=== PATIENT | female | born 1950 | race Caucasian/White ===

== ENCOUNTER 2018-11-23 17:15 | Inpatient (IN) | payer MEDICARE ==
[~2018-11-23] VITALS: Ht 162.6 cm; Wt 50.8 kg
[2018-11-23] MEDS ORDERED: ESCI10TA PO (17:38)
[2018-11-23] MEDS ORDERED: HYDR-4384 PO (17:38)
[2018-11-23] MEDS ORDERED: TRAZ-213 PO (17:38)
[2018-11-23] MEDS ORDERED: PARO12.521 PO (17:38)
[2018-11-23] MEDS ORDERED: LORA0.5T PO (17:38)
[2018-11-23] MEDS ORDERED: ACETAMINOPHEN 325 MG TABLET PO PRN (19:00)
[2018-11-23] MEDS ORDERED: MAG HYDROX/AL HYDROX/SIMETH 30 ML UDC PO PRN (19:00)
[2018-11-23] MEDS ORDERED: TEMAZEPAM 7.5 MG CAPSULE PO PRN (19:00)
[2018-11-23] MEDS ORDERED: MAGNESIUM HYDROXIDE 30 ML UDC PO PRN (19:00)
[2018-11-23 20:00] VITALS: BP 126/76
[2018-11-23] MEDS: clonazePAM 0.5 MG TABLET PO PRN (21:12)
[2018-11-24 07:03] LABS: BASOPHILS % (AUTO) 0.4 % (0.0-2.0); HEMATOCRIT 42 % (33-45); HEMOGLOBIN 14.4 g/dL (11.5-14.8); LYMPHOCYTES # (AUTO) 1.7 /CMM (0.8-4.8); LYMPHOCYTES % (AUTO) 21.6 % (20.0-44.0); MEAN CORPUSCULAR HGB CONC 35 g/dl (31.0-36.0); MEAN CORPUSCULAR VOLUME 97 fL (82-100); MONOCYTES # (AUTO) 0.4 /CMM (0.1-1.30); MONOCYTES % (AUTO) 5.6 % (2.0-12.0); NEUTROPHILS # (AUTO) 5.5 /CMM (1.8-8.9); NEUTROPHILS % (AUTO) 71.4 % (43.0-81.0); PLATELET COUNT (AUTO) 306 /CMM (150-450); WHITE BLOOD COUNT (AUTO) 7.8 K/uL (4.3-11.0)
[2018-11-24 07:06] LABS: ALBUMIN 3.7 g/dL (3.4-5.0); BILIRUBIN,TOTAL 0.6 mg/dL (0.2-1.0); CALCIUM, SERUM 9.4 mg/dL (8.5-10.1); CREATININE 0.8 mg/dL (0.6-1.3); POTASSIUM 4.4 mmol/L (3.5-5.1); TOTAL PROTEIN, SERUM 6.9 g/dL (6.4-8.2)
[2018-11-24 07:09] LABS: CHOLESTEROL 226 mg/dL (<200); HDL CHOLESTEROL 83 mg/dL (40-60); LDL 121 mg/dL (0-99); TRIGLYCERIDES 82 mg/dL (30-150)
[2018-11-24 08:00] VITALS: BP 102/82
[2018-11-24] MEDS: clonazePAM 0.5 MG TABLET PO PRN ×2 (10:57→17:15)
[2018-11-24] MEDS ORDERED: TRAZODONE 50 MG TABLET PO PRN (15:00)
[2018-11-24] MEDS ORDERED: TEMAZEPAM 7.5 MG CAPSULE PO PRN (15:30)
[2018-11-24 16:00] VITALS: BP 136/70
[2018-11-24] MEDS: ESCITALOPRAM OXALATE (10 MG) 10 MG TABLET PO SCH (17:15)
[2018-11-24 19:50] VITALS: BP 122/76
[2018-11-24] MEDS: TRAZODONE 50 MG TABLET PO PRN (21:21)
[2018-11-25] MEDS: clonazePAM 0.5 MG TABLET PO PRN ×2 (00:26→09:09)
[2018-11-25 09:00] VITALS: BP 133/60
[2018-11-25] MEDS: ESCITALOPRAM OXALATE (10 MG) 10 MG TABLET PO SCH (09:09)
[2018-11-25 16:00] VITALS: BP 92/64
[2018-11-25 20:32] VITALS: BP 104/69
[2018-11-25] MEDS: TRAZODONE 50 MG TABLET PO PRN (21:14)
[2018-11-25] MEDS: ATORVASTATIN 10 MG TABLET PO SCH (21:52)
[2018-11-25] MEDS: TEMAZEPAM 7.5 MG CAPSULE PO PRN (21:52)
[2018-11-26] MEDS: clonazePAM 0.5 MG TABLET PO PRN ×4 (05:38→20:06)
[2018-11-26 08:00] VITALS: BP 101/72
[2018-11-26 08:19] LABS: APPEARANCE,URINE CLOUDY (CLEAR); BILIRUBIN,URINE NEGATIVE (NEGATIVE); BLOOD, URINE 1+ Ery/uL (NEGATIVE); COLOR,URINE YELLOW (YELLOW); KETONES,URINE NEGATIVE (NEGATIVE); LEUKOCYTE ESTERASE ,URINE 3+ (NEGATIVE); NITRITE, URINE POSITIVE (NEGATIVE); PROTEIN,URINE NEGATIVE (NEGATIVE); UGLUCOSE NEGATIVE (NEGATIVE); UROBILINOGEN,URINE 0.2 EU/dL (0.2)
[2018-11-26 08:28] LABS: BACTERIA,URINE Moderate /HPF (None Seen); SQUAMOUS EPITHELIAL CELL,UR Few /HPF (None Seen); WBC,URINE TOO NUMEROUS TO COUN /HPF (0-3)
[2018-11-26] MEDS: ESCITALOPRAM OXALATE (10 MG) 10 MG TABLET PO SCH ×2 (08:36→08:40)
[2018-11-26 16:00] VITALS: BP 100/68
[2018-11-26 20:00] VITALS: BP 111/70
[2018-11-26] MEDS: LEVOFLOXACIN (250MG) 250 MG TABLET PO SCH (20:42)
[2018-11-26] MEDS: ATORVASTATIN 10 MG TABLET PO SCH (21:05)
[2018-11-26] MEDS: TRAZODONE 50 MG TABLET PO PRN (21:14)
[2018-11-27] MEDS: TEMAZEPAM 7.5 MG CAPSULE PO PRN (00:12)
[2018-11-27] MEDS: clonazePAM 0.5 MG TABLET PO PRN ×3 (05:33→20:06)
[2018-11-27 08:00] VITALS: BP 101/63
[2018-11-27] MEDS: ESCITALOPRAM OXALATE (10 MG) 10 MG TABLET PO SCH (08:24)
[2018-11-27 16:00] VITALS: BP 111/74
[2018-11-27 20:00] VITALS: BP 107/61
[2018-11-27] MEDS: LEVOFLOXACIN (250MG) 250 MG TABLET PO SCH (20:01)
[2018-11-27] MEDS: TRAZODONE 50 MG TABLET PO PRN (21:23)
[2018-11-27] MEDS: ATORVASTATIN 10 MG TABLET PO SCH (21:25)
[2018-11-28] MEDS: clonazePAM 0.5 MG TABLET PO PRN ×2 (02:01→08:02)
[2018-11-28 08:00] VITALS: BP 103/72
[2018-11-28] MEDS: ESCITALOPRAM OXALATE (10 MG) 10 MG TABLET PO SCH (08:02)
== END 2018-11-28 12:00 | disposition home or self-care (01) | DRG 885 ==
LOC: GPS 17:15
PROVIDERS: ADMIT Psychiatry & Neurology Psychiatry; ATTEND Internal Medicine
DX: F33.2 Major depressive disorder, recurrent severe without psychotic features (principal); N39.0 Urinary tract infection, site not specified; R45.851 Suicidal ideations; F29 Unspecified psychosis not due to a substance or known physiological condition; F41.9 Anxiety disorder, unspecified; Z91.5 Personal history of self-harm; Z85.3 Personal history of malignant neoplasm of breast; Z79.899 Other long term (current) drug therapy; T50.901D Poisoning by unspecified drugs, medicaments and biological substances, accidental (unintentional), subsequent encounter; G47.00 Insomnia, unspecified; B96.20 Unspecified Escherichia coli [E. coli] as the cause of diseases classified elsewhere
CPT/HCPCS: 36415; 80053-TC; 80061-TC; 81000-TC; 85025-TC; 87081-TC; 87086-TC; 87186-TC; A6402; A6403